=== PATIENT | male | born 1955 | race Caucasian/White ===

== ENCOUNTER → 2019-02-15 11:25 | Outpatient (CLI) | payer MEDICARE, MEDICAID, SELFPAY ==
[2019-02-15 12:19] LABS: Basophils # 0.1 K/mm3 (0-0.2); Eosinophils # 0.2 K/mm3 (0.0-0.4); Eosinophils % 3.2 % (0.1-12.0); Hematocrit 48.5 % (42.0-52.0); Hemoglobin 15.5 g/dL (14.1-18.0); Lymphocytes % 28.1 % (10-50); Mean Corpuscular Hemoglobin 28.8 pg (27.0-31.2); Mean Corpuscular Volume 89.9 fl (80-94); Mean Platelet Volume 7.2 fl (7.4-10.4); Monocytes # 0.6 K/mm3 (0.1-1.0); Monocytes % 8.4 % (1.7-9.3); Neutrophils # 4.2 K/mm3 (1.8-7.8); Neutrophils % 59.3 % (37.0-80.0); Platelet Count 275 K/mm3 (142-424); Red Cell Distribution Width 13.1 % (11.5-17.5); White Blood Count 7.1 K/mm3 (4.8-10.8)
[2019-02-15 13:38] LABS: Alanine Aminotransferase 25 U/L (12-78); Albumin Level 4.1 gm/dL (3.4-5.0); Albumin/Globulin Ratio 1.4 (1.1-1.8); Alkaline Phosphatase 68 U/L (46-116); Anion Gap 15.6 mEq/L (5-15); Aspartate Amino Transferase 16 U/L (15-37); Bilirubin,Total 0.3 mg/dL (0.2-1.0); Blood Urea Nitrogen 21 mg/dL (7-18); Calcium 9.4 mg/dL (8.5-10.1); Carbon Dioxide 27 mmol/L (21.0-32.0); Chloride 105 mmol/L (98-107); Chol/HDL Ratio 3.4 (1-3.5); Cholesterol 158 mg/dL (140-200); Creatinine,Serum 1.03 mg/dL (0.70-1.30); Estimated Glomerular Filt Rate 72 ml/min (>60); GFR (African American) 88 ML/MIN (>60); Globulin 2.9 gm/dl (1.3-3.2); Glucose 102 mg/dL (74-106); HDL Cholesterol 47 mg/dL (27-67); LDL Cholesterol 81 mg/dL (0-130); Potassium 4.6 mmoL/L (3.5-5.1); Sodium 143 mmol/L (136-145); T4 (Thyroxine) 8.5 ug/dl (4.7-13.3); Thyroid Stimulating Hormone 1.85 uIU/ml (0.358-3.740); Triglycerides 150 mg/dL (30-200); Triiodothryronine (T3) Uptake 35 % (31-39); VLDL Cholesterol 30 mg/dL (0-40)
== END ==
PROVIDERS: Visit Provider Internal Medicine Adolescent Medicine
DX: I10 Essential (primary) hypertension (principal)
CPT/HCPCS: 36415; 80053; 80061; 84436; 84443; 84479; 85025

== ENCOUNTER → 2019-02-22 14:41 | Outpatient (CLI) | payer MEDICARE, MEDICAID, SELFPAY ==
--- NOTE | 2019-02-22 14:53 | US_ITS ---
US thyroid HISTORY: ITS.REASON: THYROID NODULE ORDERING PHYSICIAN: Cpao Donato MD PATIENT AGE: 63 years Comparison: None FINDINGS: Right thyroid lobe is 1.8 x 4.5 x 2.0 cm. Left lower lobe is 1.6 x 4.1 x 1.6 cm. AP diameter of the isthmus is 0.5 cm. Along the left side of the isthmus there is a oval-shaped solid isoechoic nodule with smooth margins without echogenic foci. The lesion is wider compared to the height and the nodule measures 2.3 cm in width and 1.5 cm in height and length is 2.3 cm. Remainder of the thyroid gland is normal with normal echogenicity. Impression: Solid solitary left isthmus nodule. TI-Rad category 3. Recommendation is therefore continued follow-up at 6-12 months and if the lesion increases in size to 2.5 cm or greater then FNA would be recommended.
== END ==
PROVIDERS: PCP Internal Medicine Adolescent Medicine; Visit Provider Internal Medicine Adolescent Medicine
DX: E04.1 Nontoxic single thyroid nodule (principal)
CPT/HCPCS: 76536

== ENCOUNTER → 2019-08-09 10:37 | Outpatient (CLI) | payer MEDICARE, MEDICAID, SELFPAY ==
[2019-08-09 11:59] LABS: Free Thyroxine Index 3.7 ug/dL (5.93-13.13); Thyroid Stimulating Hormone 1.89 uIU/ml (0.358-3.740); Triiodothryronine (T3) Uptake 37 % (31-39)
== END ==
PROVIDERS: Visit Provider Internal Medicine Adolescent Medicine
DX: E04.1 Nontoxic single thyroid nodule (principal)
CPT/HCPCS: 36415; 84436; 84443; 84479

== ENCOUNTER → 2019-08-15 11:04 | Outpatient (CLI) | payer MEDICARE, MEDICAID, SELFPAY ==
--- NOTE | 2019-08-15 11:06 | US_ITS ---
PROCEDURE: US THYROID CLINICAL INDICATION: THYROID NODULE Follow-up isthmus nodule COMPARISON: THY US thyroid from 02/22/2019 FINDINGS: Right lobe: 4.5 x 1 x 1.7 cm. Homogeneous echogenicity of the right lobe. Left lobe: 4.5 x 1.7 x 1.3 cm. Homogeneous echogenicity of the left lobe Isthmus: A solid-appearing isoechoic 2.4 by 1.8 x 1.3 cm nodule is present in the isthmus not significantly changed Additional findings: IMPRESSION: Stable appearing solid nodule of the isthmus. T rads level 3. Consider ultrasound-guided FNA if not already performed. Dictated by: Glenn Aguilera MD 08/16/2019 07:00 Electronically signed by Glenn Aguilera MD in [place] 08/16/2019 07:00
== END ==
PROVIDERS: PCP Internal Medicine Adolescent Medicine; Visit Provider Internal Medicine Adolescent Medicine
DX: E04.1 Nontoxic single thyroid nodule (principal)
CPT/HCPCS: 76536

== ENCOUNTER 2024-01-25 13:38 | Emergency (ER) | payer MEDICARE, SELFPAY ==
[2024-01-25 13:41] VITALS: BP 140/86; PULSE 72; RESP 16; TEMP 36.9; O2SAT 100
--- NOTE | 2024-01-25 13:42 | PC.NURSE ---
Dr. Peter to bedside for assessment with US
--- NOTE | 2024-01-25 13:42 | PC.NURSE ---
pt refused fsbs at this time
--- NOTE | 2024-01-25 13:42 | PC.NURSE ---
c-collar applied per Dr. Peter
[2024-01-25 13:43] VITALS: BMI 24.4
--- NOTE | 2024-01-25 13:46 | XR_ITS ---
FINAL REPORT CLINICAL HISTORY: fall, R shoulder pain COMPARISON: None FINDINGS: Two views show a probable longitudinal fracture involving the lesser tuberosity. CT correlation recommended to confirm. The joint spaces appear normal. Calcifications along the humeral head are probably due to joint bodies. IMPRESSION: Probable fracture lesser tuberosity. CT correlation recommended. Reviewed, Interpreted and Dictated by Mei Blank MD Transcribed by Ary Wallace Authenticated and . [facility]
--- NOTE | 2024-01-25 13:46 | XR_ITS ---
FINAL REPORT CLINICAL HISTORY: fall, right shoulder deformity COMPARISON: None FINDINGS: 3 views show a longitudinal fracture of the lesser tuberosity minimally extending into the humeral neck. There is no evidence of dislocation. The joint spaces appear normal. Calcifications along the humeral head are probably due to joint bodies. IMPRESSION: Fracture as above. Reviewed, Interpreted and Dictated by Mei Blank MD Transcribed by Ary Wallace Authenticated and [facility]
--- NOTE | 2024-01-25 13:47 | XR_ITS ---
FINAL REPORT CLINICAL HISTORY: fall, L knee pain and swelling COMPARISON: None FINDINGS: LEFT KNEE 3 views of the left knee were obtained. There is no acute fracture or dislocation. Visualized joint spaces are normally aligned. There is a small joint effusion. Soft tissues are unremarkable. IMPRESSION: Small joint effusion without acute bony abnormality. Reviewed, Interpreted and Dictated by Mei Blank MD Transcribed by Ary Wallace Authenticated and [facility]
--- NOTE | 2024-01-25 13:47 | XR_ITS ---
FINAL REPORT CLINICAL HISTORY: fall, R humerus and shoulder pain COMPARISON: None FINDINGS: RIGHT ELBOW 4 views were obtained. The lateral view is suboptimal. There is no obvious fracture. There is no joint effusion. The joint spaces are intact. There is no soft tissue abnormality. IMPRESSION: No obvious fracture. Reviewed, Interpreted and Dictated by Mei Blank MD Transcribed by Ary Wallace Authenticated and . [facility]
--- NOTE | 2024-01-25 13:54 | CT_ITS ---
FINAL REPORT TECHNIQUE: Thin section axial CT with sagittal and coronal reconstruction without contrast. This study was performed with techniques to keep radiation doses as low as reasonably achievable, (ALARA). Individualized dose reduction techniques using automated exposure control or adjustment of mA and/or kV according to the patient's size were employed. CLINICAL HISTORY: fall, struck head and neck no LOC COMPARISON: None FINDINGS: No fracture is seen. Alignment is normal. There is mild diffuse degenerative disc change. No obvious bony spinal canal stenosis is present. No gross disk abnormalities are seen. IMPRESSION: No fracture or malalignment Reviewed, Interpreted and Dictated by Mei Blank MD Transcribed by Ary Wallace Authenticated and [facility]
--- NOTE | 2024-01-25 13:54 | CT_ITS ---
FINAL REPORT TECHNIQUE: Axial imaging of the head was obtained without contrast. This study was performed with techniques to keep radiation doses as low as reasonably achievable, (ALARA). Individualized dose reduction techniques using automated exposure control or adjustment of mA and/or kV according to the patient''s size were employed. CLINICAL HISTORY: fall, struck right side of head COMPARISON: None FINDINGS: No abnormal density is seen. Ventricles are normal. There is no hemorrhage. No mass effect is seen. There is bilateral ethmoid and frontal sinusitis. Bone windows show no evidence of fracture. IMPRESSION: No acute findings Reviewed, Interpreted and Dictated by Mei Blank MD Transcribed by Ary Wallace Authenticated and [facility]
--- NOTE | 2024-01-25 14:06 | PC.NURSE ---
Pt gone to CT via stretcher
--- NOTE | 2024-01-25 14:19 | CT_ITS ---
FINAL REPORT TECHNIQUE: Axial images through the right shoulder were performed by computed tomography. Sagittal and coronal reconstruction images were performed. This study was performed with techniques to keep radiation doses as low as reasonably achievable (ALARA). Individualized dose reduction techniques using automated exposure control or adjustment of mA and/or kV according to the patient's size were employed. CLINICAL HISTORY: fx dislocation COMPARISON: None FINDINGS: There is a comminuted fracture of the lesser tuberosity with posterior dislocation of the neck. The AC joint is intact. The humeral neck and shaft are intact. No significant degenerative changes identified. No soft tissue abnormality. IMPRESSION: Lesser tuberosity fracture with dislocation. Reviewed, Interpreted and Dictated by Mei Blank MD Transcribed by Ary Wallace Authenticated and [facility]
[2024-01-25] MEDS: ACETAMINOPHEN 1,000MG/100ML VIAL 1000 MG IV (14:34)
[2024-01-25] MEDS: KETOROLAC 30MG/ML VIAL 15 MG IV (14:34)
[2024-01-25] MEDS: HYDROMORPHONE 2MG/ML SYRINGE 0.5 MG IV (14:35)
--- NOTE | 2024-01-25 14:48 | PC.NURSE ---
Pt returned to room from CT
--- NOTE | 2024-01-25 14:50 | PC.NURSE ---
Called [facility] transfer center about pt transfer. Waiting for call back from Dr. Munoz.
--- NOTE | 2024-01-25 14:56 | PC.NURSE ---
Dr. Peter s/w [facility], Dr. Munoz
[2024-01-25 15:00] VITALS: BP 184/101; PULSE 74; O2SAT 97
--- NOTE | 2024-01-25 15:10 | HMH.EDGENADL ---
Discharge Plan Referrals Follow up/Referrals: Provider,Referral, MD [Primary Care Provider] - See instructions Clinical Impressions Clinical Impression: Closed fracture dislocation of right shoulder Discharge ED Provider: Stephon Peter General Adult HPI General Stated complaint: fell off horse Time Seen by Provider: 01/25/24 13:46 Mode of Arrival: Wheelchair Limitations: No Limitations Description of Symptoms (Recalled from ER Triage Doc. by RN): pt to the ED via POV after falling off his horse. pt reports he was riding his horse at a slow cantar when the horse tripped and both of them fell. pt reports the horse fell on his left leg but that he felt most of the impact on his right side. pt reports right shoulder pain with decreased ROM and left calf and thigh pain. pt reports hitting his head on the ground with blood in his mouth but denies LOC. History of Present Illness HPI narrative: Please note that above description of symptoms, in this electronic medical record under categorization of recalled from ER triage doctor by RN are reflective of an initial nursing assessment, however, is not reflective of my full history and physical exam that was personally taken and clarified. Consequentially, this preceding description of symptoms, which may include the patient's categorized chief complaint in the EMR, do not reflect my personal clinical impression, and the ultimate description of history of present illness and patient stated complaints should be deferred to this section of the note. Unless stated otherwise or congruent with this section of the note, additional signs, symptoms, or incongruence should be interpreted as inaccurate with my clinical impression. Related Data Allergies Allergy/AdvReac Type Severity Reaction Status Date / Time No Known Allergies Allergy Verified 01/25/24 14:01 [facility] Disclaimer: The information contained in this section may have been updated after the patient was seen, as this information can be updated by other users. Social History Smoking Status: Never smoker alcohol intake: never current occupational status: employed Travel in the last 8 weeks: None ROS Obtained: Yes All systems reviewed & no additional complaints except as documented Physical Exam General General appearance: alert and in distress (Secondary to pain) Head Head exam: normocephalic and other (Superficial lip laceration. Hemostatic) Eye Eye exam: Present normal appearance, PERRL and EOMI ENT ENT exam: Present mucous membranes moist Neck Neck exam: Present normal inspection, full ROM and trachea midline Respiratory Respiratory exam: Present normal lung sounds bilaterally; Absent respiratory distress, wheezes, stridor, accessory muscle use or prolonged expiratory phase Cardiovascular Cardiovascular exam: Present regular rate and normal rhythm Abdominal Exam Abdominal exam: Present soft; Absent distention, tenderness, guarding, rebound or rigidity Extremities Exam Extremities exam: Present edema and other (Tenderness, swelling right shoulder. Patient has posterior bulge at glenohumeral joint and concern for posterior dislocation. Holding arm in adduction with elbow flexion) Neurological Exam Neurological exam: Present alert, oriented X3, CN II-XII intact and normal gait; Absent motor sensory deficit Skin Skin exam: Present warm and dry; Absent diaphoresis or erythema Medical Decision Making Medical Records Medical records reviewed: Yes I reviewed the patient's medical records. Suresh Inquiry Pt receiving controlled substance: No Suresh was queried for this patient: No Vital Signs: 01/25/24 13:41 Temperature 98.4 F Temperature Source Oral Pulse Rate [Right Radial] 72 Respiratory Rate 16 Blood Pressure [Left Arm] 140/86 Blood Pressure Mean [Left Arm] 104 Blood Pressure Source [Left Arm] Automatic Cuff Blood Pressure Position [Left Arm] Sitting 02 Sat by Pulse Oximetry 100 Oxygen Delivery Method Room Air Orders (Tests/Meds): ED MEDICATIONS Discontinued Medications Generic Name Dose Route Start Last Admin Trade Name Freq PRN Reason Stop Dose Admin Acetaminophen 1,000 mg 01/25/24 13:47 01/25/24 14:34 Acetaminophen 1,000mg/100ml Vial IV 01/25/24 13:48 1,000 mg ONCE ONE Administration Hydromorphone HCl 0.5 mg 01/25/24 13:46 01/25/24 14:35 Hydromorphone 2mg/Ml Syringe IV 01/25/24 13:47 0.5 mg ONCE ONE Administration Ketorolac Tromethamine 15 mg 01/25/24 13:47 01/25/24 14:34 Ketorolac 30mg/Ml Vial IV 01/25/24 13:48 15 mg ONCE ONE Administration ORDERS Category Date Time Status CT cervical spine wo con Stat Cat Scan 01/25/24 13:[address] head/brain wo con Stat Cat Scan 01/25/24 13:[address] shoulder RT wo con Stat Cat Scan 01/25/24 14:19 Taken Elbow XR right minimum 3 views [XR elbow RT min 3V] Exams 01/25/24 13:47 Completed Stat Humerus XR right [XR humerus RT] Stat Exams 01/25/24 13:46 Completed Knee XR left 3 views [XR knee LT 3V] Stat Exams 01/25/24 13:47 Completed POCUS Point of Care (ER Only) Stat Exams 01/25/24 14:01 Taken Shoulder XR right miminum 2 views [XR shoulder RT min Exams 01/25/24 13:46 Completed 2V] Stat Medical Decision Narrative: This is a 68-year-old male with no relevant medical history not on anticoagulation presenting with pain after fall. Patient states he was thrown from horse. This happened just prior to arrival. He was able to clear the horse jumping off the right side, the horse fell and landed on his left leg pinning his left leg against the ground. Patient states that when the horse fell on him, he smacked his right shoulder, head against the ground. No loss of conscious. Had immediate, severe pain in his right shoulder. Mild pain in his left knee extending down to his left ankle. No chest pain, belly pain, shortness of breath, nausea or vomiting, vision changes, or any other concerns. History obtained with patient. On arrival, patient hemodynamically stable, but appears to be in moderate to severe pain. Left hand is holding his right wrist against his chest with his arm in adduction and elbow flexion. Neurovascularly intact right upper extremity. Range of motion limited secondary to deformity right shoulder with posterior bulge. Differential includes fracture, dislocation, fracture dislocation, intracranial bleed, clinically significant cervical spine injury, among others. Patient given IV, 0.5 mg Dilaudid IV. X-rays with concern for fracture dislocation right shoulder. CT shoulder confirms. CT cervical spine and CT head without acute intracranial hemorrhage or significant spinal injury. C-collar was cleared. [facility] was contacted and case was discussed at length for fracture dislocation right shoulder and need for orthopedics which is not currently here and inability to safely perform sedation reduction with current emergency department volume. Because patient high risk for clinical decompensation if discharged, deemed appropriate for transfer and inpatient admission. Results were relayed to patient who voiced understanding and patient was agreeable to transfer, inpatient admission, and management. Patient was graciously accepted and transferred to [facility] for further definitive management, under Dr. Munoz. Religious Ritual Slaughterer disclaimer Much of this encounter note is an electronic senior cost analyst spoken language to printed text. Electronic senior cost analyst of the spoken language may permit errors. Although I have reviewed the note, some errors may still exist. Critical Care Critical Care Time Critical Care Time: Yes (ortho) Attestation: On 01/25/24, the high probability of a clinically significant, sudden or life threatening deterioration of the following system(s) required my full and direct attention, intervention and personal management. The time I documented below is in addition to time spent performing reported procedures but includes the following listed in this critical care notation. Total Time Total Critical Care Time: 35
[2024-01-25 15:30] VITALS: BP 174/105; PULSE 78; O2SAT 97
--- NOTE | 2024-01-25 15:35 | PC.NURSE ---
Dr. Peter at [facility] to update pt on POC
--- NOTE | 2024-01-25 15:35 | PC.NURSE ---
pt friend Ahmet contacted and will be here to transfer to [facility] per POV
[2024-01-25] MEDS: KETAMINE 50MG/1ML SYRINGE 25 MG IV (16:28)
[2024-01-25 17:09] VITALS: BP 170/75; PULSE 86; RESP 18; TEMP 36.8; O2SAT 98
[2024-01-25] MEDS: OXYCODONE 5MG IMMEDIATE RELEASE TABLET 10 MG PO (17:26)
[2024-01-25] MEDS: ONDANSETRON 4MG/2ML VIAL 4 MG IV (17:26)
== END 2024-01-25 17:43 | disposition short-term general hospital (02) ==
PROVIDERS: Emergency Provider Emergency Medicine
DX: S42.261A Displaced fracture of lesser tuberosity of right humerus, initial encounter for closed fracture (principal); S43.024A Posterior dislocation of right humerus, initial encounter; S01.511A Laceration without foreign body of lip, initial encounter; M25.562 Pain in left knee; V80.010A Animal-rider injured by fall from or being thrown from horse in noncollision accident, initial encounter
CPT/HCPCS: 70450; 72125; 73030; 73060; 73080; 73200; 73562; 96374; 96375; 96376; 99285; J0131; J1170; J1885; J2405